=== PATIENT | female | born 1970 | race Caucasian/White ===

== ENCOUNTER 2024-01-15 17:16 | Emergency (ER) | payer OTHER, SELFPAY ==
[2024-01-15 17:23] VITALS: BP 141/84; BMI 30.9
--- NOTE | 2024-01-15 18:18 | ED.GENMED ---
History of Present Illness
General
Chief Complaint: Abdominal Pain
Source: patient
Exam Limitations: none
Time Seen by Provider: 01/15/24 17:53
Travel History
Have you had any contact with someone who has COVID-19?: No
Do you have any symptoms of coronavirus? Fever > 100 degrees, chills, cough, shortness of breath, sore throat, loss of taste or smell, muscle aches, or headache?: No
History of Present Illness
History of Present Illness:
This is a 53 year old female that comes in with c/o pain under the ribs on the left. Sates that this started about 2- 3 weeks ago. Patient saw the PCP and she was given steroids. States that she finished them yesterday. States that Friday she was
putting on her jeans and she started with pain again. States that today the pain takes her breath away. States that the pain is under her ribs and that it comes and goes sometimes with movement. States that she can't lay on the left side due to the
pain. States that today it felt like a contraction States that the only thing new was she started with Yoga and was on the inversion table. States that she gets nauseated with the pain. Denies any falls or injury. Denies any fever, chills, chest
pain, SOB, abd pain, vomiting, diarrhea, headache, dizziness, urinary burning.
Past History
Past History
ED Past Medical History: GERD, Hypothyroidism and Psychiatric (Depression )
ED Past Surgical History:
Social History
Tobacco: Non-smoker
Alcohol: Occasional
Personal: Single
Living: with family
Employment: Employed
Family History
Family History: Other (Cerebral aneurysm)
Review of Systems
Review of Systems
All Other Systems: ROS reviewed and negative except as documented in HPI and ROS
Constitutional: Reports no symptoms; Denies fever or chills
EENT: Reports no symptoms
Respiratory: Denies cough or trouble breathing
Cardiac: Denies chest pain
ABD/GI: Reports abdominal pain (Pain under the left rib area); Denies nausea, vomiting or diarrhea
: Reports no symptoms; Denies dysuria, frequency or urgency
Musculoskeletal: Reports no symptoms
Skin: Reports no symptoms
Neurological: Reports no symptoms; Denies dizzy or headache
Psychiatric: Reports no symptoms
Phy Exam
General Physical Exam
General Presentation: no apparent distress
General age: appears stated age
General Skin: warm and dry
General Habitus: normal
General Mental: alert
General Hydration: appears well hydrated
ENT Exam
ENT Exam: TM's normal, pharynx normal and neck supple
Eye Exam
Eye Exam: EOMI
Cardiovascular Exam
Cardiovascular Exam: regular rate/rhythm, no edema, no murmur and normal peripheral pulses
Pulmonary Exam
Pulmonary Exam: lungs clear, no respiratory distress, no rales, chest non tender, no crackles, no rhonchi, no wheezing, no cough and other (negative for any discomfort with palpation over the left ribs )
Gastrointestinal Exam
Gastrointestinal Exam: normal bowel sounds, non tender, soft, no organomegaly, no pulsatile mass and non distended
Musculoskeletal Exam
Musculoskeletal Exam: full ROM and no edema
Skin Exam
Skin Exam: normal color, warm/dry, no rash and no petechia
Psychiatric Exam
Psychiatric Exam: normal mood/affect
Course
Orders/Labs/Results
Orders:
Orders
01/15/24 18:17
CR Chest - 2 Views Urgent
Comment:
Reason For Exam: pain with deep breating, Under rib pain
01/15/24 18:23
Ketorolac [Toradol] 30 mg IV NOW STA
01/15/24 18:36
Complete Blood Count/With Diff Urgent
Comprehensive Metabolic Panel Urgent
D-Dimer Urgent
Urinalysis Reflex To Culture Urgent
Date Specimen was Collected: 01/15/24
Time Specimen was Collected: 18:28
Abnormal Lab Results
01/15/24
18:36
Absolute Lymphs (auto) 1.1 L 10^3/uL
(1.2-3.4)
Lymphocytes % 17.2 L %
(20.5-51.1)
Carbon Dioxide 31 H mmol/L
(22-30)
BUN 22 H mg/dl
(7-17)
Glucose 100 H mg/dl
(70-99)
01/15/24 18:36
01/15/24 18:36
Vital Signs
Initial and Last Documented VS:
Initial Vital Signs
Temp Pulse Resp BP Pulse Ox
98.2 F 76 16 141/84 100
01/15/24 17:23 01/15/24 17:23 01/15/24 17:23 01/15/24 17:23 01/15/24 17:23
Last Documented Vital Signs
Temp Pulse Resp BP Pulse Ox
98.2 F 76 16 141/84 100
01/15/24 17:23 01/15/24 17:23 01/15/24 17:23 01/15/24 17:23 01/15/24 17:23
MDM/Problems Addressed
Differential Diagnosis Includes:
PE, Musculoskeletal pain
MDM/Problems Addressed:
This is a 53 year old female that comes in with c/o pain under the left rib area. States that she had this 2-3 weeks ago and it went away. Then on Friday the pain returned when she was pulling up her jeans. States that she saw the PCP and was given
steroids which she finished yesterday
Will check labs. chest x-ray and medicate for pain
Back into see patient. Explained that her blood work shows slight dehydration and her urine is negative for infection or blood. Chest X-ray is normal and her D-dimer is negative. This is most likely musculoskeletal in nature. Encouraged patient to
stop the yoga until pain is decreased. Patient can use Tylenol or ibuprofen for pain. Follow up with the family doctor. Return with any concerns.
Chronic conditions affecting care:
NA
Acute Exacerbation and/or Progression of Chronic Illness:
NA
*Radiology
Radiology exam reviewed: radiology read reviewed (Chest- No acute cardiopulmonary process)
*Pulse Oximetry
Patient hypoxic: no
*EKG
Interpreted by ED Provider?: NA
Rate: EKG- N/A
*Candle Wrapping Machine Operator Interpretation
Rate: Candle Wrapping Machine Operator- N/A
*Critical Care Note
Total Time (30-74mins, 75-104mins- exclusive of procedures): Not Applicable
ED Attending Note
-
Portions of this chart may have been created with voice recognition software.� Occasional wrong word or��sound alike� substitutions may have occurred due to the inherent limitations of voice recognition software.
Discharge Plan
Departure
Patient Disposition: Home (Routine Discharge)
Date of Disposition: 01/15/24
Time of Disposition: 19:35
Patient with high blood pressure during this ER visit?: Yes
Condition: Good
Covid-19: Not Applicable
Discharge Problem:
Musculoskeletal pain
Instructions: BLOOD PRESSURE, Musculoskeletal Pain
Prescriptions:
No Action
sertraline 100 MG tablet
100 mg PO HS
levothyroxine 88 MCG tablet
88 mcg PO DAILY
Referrals:
Iris Torres PA-C [Family Provider] - Call in 1-3 days for appt
Activity Restrictions/Additional Instructions:
As discussed, your blood work shows slight dehydration. Please increase your water intake to 8-8oz glasses daily. Your Urine is negative fo infection or blood and your d-dimer and chest x-ray is normal. This is most likely Musculoskeletal in nature.
Please use Tylenol 1000mg every 6 hours and Ibuprofen 600mg every 6 hours with food for pain. You may use heat or ice to the flank are to help with pain. Follow up with the family doctor for recheck. IF YOU HAVE INCREASED OR CHANGING PAIN, OR YOU
HAVE ANY OTHER CONCERNS PLEASE RETURN TO THE EMERGENCY ROOM.
Interventions
Interventions:
*Risk Screen - Suicide Last Done: 01/15/24 17:23
*Neglect/Abuse Screening Last Done: 01/15/24 17:23
ED- Fall Risk Assessment Last Done: 01/15/24 18:49
*ED COVID-19 Vaccine History Last Done: 01/15/24 17:23
BK-Ewccxc-Qeofoszygj Assessment Last Done: 01/15/24 18:49
[2024-01-15] MEDS: TORADOL 30 MG IV (18:36)
[2024-01-15 18:46] LABS: Urine Albumin Negative (Neg - Trace); Urine Bilirubin Negative (Negative); Urine Character Clear (Clear); Urine Color Yellow; Urine Glucose Negative (Negative); Urine Ketone Negative (Negative); Urine Leukocyte Negative (Negative); Urine Nitrite Negative (Negative); Urine Occult Blood Negative (Negative); Urine Urobilinogen Negative (Neg - 1+)
[2024-01-15 18:52] LABS: % Basophils 0.5 % (0-2); % Eosinophils 1.3 % (0-6); % Immature Granulocytes 0.3 % (0-0.5); % Lymphocytes 17.2 % (20.5-51.1); % Monocytes 6.9 % (1.7-9.3); % Neutrophils 73.8 % (42.2-75.2); Absolute Eosinophils 0.1 10^3/uL (0-0.7); Absolute Lymphocytes 1.1 10^3/uL (1.2-3.4); Absolute Monocytes 0.4 10^3/uL (0.1-0.6); Absolute Neutrophils 4.6 10^3/uL (1.4-6.5); Hematocrit 39.1 % (37.0-47.0); Mean Corp Hgb Conc. 33.2 g/dL (33.0-37.0); Mean Corpuscular Hgb 29.4 pg (27.0-31.0); Mean Corpuscular Volume 88.5 fL (81.0-99.0); Mean Platelet Volume 9.3 fL (7.4-10.4); Nucleated Red Blood Cells % 0 %; Platelet Count 199 10^3/uL (130-400); Red Blood Cell Count 4.42 10^6/uL (4.20-5.40); Red Cell Dist. Width 13.2 % (11.5-14.5); White Blood Cell Count 6.2 10^3/uL (4.8-10.8)
[2024-01-15 19:07] LABS: D-Dimer 0.27 ug/mlFEU (0.00-0.50)
[2024-01-15 19:10] LABS: ALT (SGPT) 26 U/L (0-35); AST (SGOT) 25 U/L (14-36); Albumin 4.3 g/dl (3.5-5.0); Alkaline Phosphatase 94 U/L (38-126); Blood Urea Nitrogen 22 mg/dl (7-17); Calcium 9.3 mg/dl (8.4-10.2); Carbon Dioxide 31 mmol/L (22-30); Chloride 102 mmol/L (98-107); Estimated Creatinine Clearance 98 ml/min; Glucose 100 mg/dl (70-99); Potassium 4.3 mmol/L (3.5-5.1); Sodium 136 mmol/L (135-145); Total Bilirubin 0.4 mg/dl (0.2-1.3); eGFR > 60.00
[2024-01-15 19:49] VITALS: BP 137/80
== END 2024-01-15 19:50 | disposition home or self-care (01) ==
LOC: EMR 17:16
PROVIDERS: Clinical Nurse Specialist Family Health; EMERGENCY PHYSICIAN Emergency Medicine; FAMILY PHYSICIAN Physician Assistant Medical
DX: M79.18 Myalgia, other site (principal); R03.0 Elevated blood-pressure reading, without diagnosis of hypertension
CPT/HCPCS: 99284; 96374; 71046; 80053; 81003; 85025; 85379

== ENCOUNTER → 2024-07-30 13:30 | Outpatient (REF) | payer OTHER, SELFPAY | LOC: WDC 13:30 | PROVIDERS: ATTENDING PHYSICIAN Obstetrics & Gynecology; FAMILY PHYSICIAN Physician Assistant Medical | DX: R14.0 Abdominal distension (gaseous) (principal); Z12.31 Encounter for screening mammogram for malignant neoplasm of breast | CPT/HCPCS: 76830; 76856 ==

== ENCOUNTER 2024-08-19 18:03 | Emergency (ER) | payer OTHER, SELFPAY ==
[2024-08-19 18:16] VITALS: BP 121/87
[2024-08-19 19:11] VITALS: BP 129/84
--- NOTE | 2024-08-19 19:45 | ED.GENMED ---
History of Present Illness
General
Chief Complaint: DVT/Possible Blood Clot
Source: patient
Time Seen by Provider: 08/19/24 18:55
History of Present Illness
History of Present Illness:
54 year old female with PMH of hypothyroid, GERD, and newly diagnosed high cholesterol presenting to the ER for evalutation of non traumatic right calf pain x 1.5 weeks described to be a like a charleyhorse sensation that worsens when going down
stairs. Patient can not think of any exacerbating factors. No DVT risk factors including exogenous estrogens or recent travel. Has not used anything for pain. Denies color changes, numbness, weakness or any other concerns. No history of similar. No
tobacco history
Past History
Past History
ED Past Medical History: GERD, Hypothyroidism and Psychiatric (Depression )
ED Past Surgical History:
Social History
Tobacco: Non-smoker
Alcohol: Occasional
Drug: None
Personal:
Living: with family
Employment: Employed
Family History
Family History: Other (Cerebral aneurysm)
Review of Systems
Review of Systems
All Other Systems: ROS reviewed and negative except as documented in HPI and ROS
Phy Exam
Physical Exam
Physical Exam:
GENERAL: Alert , in no apparent distress
EYE: conjunctiva clear
Head: Normocephalic atraumatic
NECK: Supple,
ENT: mmm.
LUNGS: no acute respiratory distress
NEUROLOGICAL: Alert and oriented
SKIN: Warm and dry, skin intact.
MUSCULOSKELETAL: easily palpable pedal/tibial/popliteal pulses. CR < 2 sec, sensation grossly intact to light touch, well perfused. Mild ttp mid to distal gastrocnemius
PSYCH: Normal and appropriate interaction.
Scores
Heart Failure Risk
Heart Failure Risk Score: Not Applicable
Heart Score for Chest Pain Patients
STEMI patient?: Not applicable
Withdrawal Assessment of Alcohol
Withdrawal Assessment Completed?: Not applicable
Course
Orders/Labs/Results
Orders:
Orders
08/19/24 18:21
US Legs, Right [US Periph Venous LOWER Ext RT] Urgent
Comment:
Reason For Exam: RLE calf pain
Vital Signs
Initial and Last Documented VS:
Initial Vital Signs
Temp Pulse Resp BP Pulse Ox
98.6 F 77 18 121/87 100
08/19/24 18:16 08/19/24 18:16 08/19/24 18:16 08/19/24 18:16 08/19/24 18:16
Last Documented Vital Signs
Temp Pulse Resp BP Pulse Ox
98.6 F 70 18 133/84 99
08/19/24 18:16 08/19/24 20:59 08/19/24 18:16 08/19/24 20:59 08/19/24 19:14
MDM/Problems Addressed
Differential Diagnosis Includes:
gastrocnemius strain, DVT, PAD, PVD
MDM/Problems Addressed:
54 year old female presenting to the ED for 1.5 weeks of non traumatic RLE calf pain. Intact pulses b/l. No sensory/neuro deficits. Normal ROM. Will check US to rule out DVT. Disposition pending.
*Radiology
Radiology exam reviewed: radiology read reviewed
*Pulse Oximetry
Patient hypoxic: no
*Critical Care Note
Total Time (30-74mins, 75-104mins- exclusive of procedures): Not Applicable
Patient Management
Escalation/DeEscalation of care consider admission/obs:
Patient US is negative for DVT. Stable for d/c home and outpatient follow up. Aware of return precautions
ED Attending Note
-
Portions of this chart may have been created with voice recognition software.� Occasional wrong word or��sound alike� substitutions may have occurred due to the inherent limitations of voice recognition software.
Discharge Plan
Departure
Patient Disposition: Home (Routine Discharge)
Date of Disposition: 08/19/24
Time of Disposition: 20:43
Patient with high blood pressure during this ER visit?: No
Discharge Problem:
Pain in right lower leg
Instructions: Lower Extremity Muscle Strain (DC)
Prescriptions:
No Action
sertraline 100 MG tablet
100 mg PO HS
levothyroxine 88 MCG tablet
88 mcg PO DAILY
Referrals:
Iris Torres PA-C [Family Provider] -
Interventions
Interventions:
*Risk Screen - Suicide Last Done: 08/19/24 18:20
*General Assessment Last Done: 08/19/24 20:59
*Neglect/Abuse Screening Last Done: 08/19/24 18:20
*Nursing Disposition Last Done: 08/19/24 20:59
ED- Cardiac Assessment Last Done: 08/19/24 19:14
ED- Pulmonary Assessment Last Done: 08/19/24 19:14
ED-Skin Assessment Last Done: 08/19/24 19:14
Discharge Date and Time
Discharge Date/Time: 08/19/24 21:02
Print Language: [place]
[2024-08-19 20:58] VITALS: BP 133/84
[2024-08-19 20:59] VITALS: BP 133/84
== END 2024-08-19 21:02 | disposition home or self-care (01) ==
LOC: EMR 18:03
PROVIDERS: EMERGENCY PHYSICIAN Student in an Organized Health Care Education/Training Program; FAMILY PHYSICIAN Physician Assistant Medical
DX: M79.661 Pain in right lower leg (principal); E03.9 Hypothyroidism, unspecified; E78.00 Pure hypercholesterolemia, unspecified; K21.9 Gastro-esophageal reflux disease without esophagitis
CPT/HCPCS: 99284; 93971

== ENCOUNTER → 2024-09-07 17:45 | Outpatient (REF) | payer OTHER, SELFPAY | LOC: RAD 17:45 | PROVIDERS: ATTENDING PHYSICIAN Physician Assistant Medical | DX: R07.81 Pleurodynia (principal) | CPT/HCPCS: 71101 ==

== ENCOUNTER → 2024-09-13 13:57 | Outpatient (REF) | payer OTHER, SELFPAY | LOC: RAD 13:57 | PROVIDERS: ATTENDING PHYSICIAN Obstetrics & Gynecology; FAMILY PHYSICIAN Physician Assistant Medical | DX: N83.291 Other ovarian cyst, right side (principal) | CPT/HCPCS: 76830; 76856 ==

== ENCOUNTER → 2024-11-15 16:21 | Outpatient (REF) | payer OTHER, SELFPAY | LOC: PAVMRI 16:21 | PROVIDERS: ATTENDING PHYSICIAN Student in an Organized Health Care Education/Training Program; FAMILY PHYSICIAN Physician Assistant Medical | DX: M25.571 Pain in right ankle and joints of right foot (principal); M25.572 Pain in left ankle and joints of left foot; M79.604 Pain in right leg | CPT/HCPCS: 73718; 73721 ==

== ENCOUNTER → 2025-10-06 12:27 | Outpatient (REF) | payer OTHER, SELFPAY | LOC: RAD 12:27 | PROVIDERS: ATTENDING PHYSICIAN Obstetrics & Gynecology Gynecology; FAMILY PHYSICIAN Physician Assistant Medical | DX: N93.9 Abnormal uterine and vaginal bleeding, unspecified (principal) | CPT/HCPCS: 76830; 76856 ==

== ENCOUNTER → 2025-11-07 13:07 | Outpatient (REF) | payer OTHER, SELFPAY | LOC: WDC 13:07 | PROVIDERS: ATTENDING PHYSICIAN Obstetrics & Gynecology; FAMILY PHYSICIAN Physician Assistant Medical | DX: Z12.31 Encounter for screening mammogram for malignant neoplasm of breast (principal) | CPT/HCPCS: 77063; 77067 ==